=== PATIENT | male | born 1945 | race Caucasian/White ===

== ENCOUNTER 2017-03-27 16:06 | Observation (INO) | payer OTHER ==
[2017-03-27] MEDS: ASPIRIN 325 MG TAB PO (16:30)
[2017-03-27] MEDS ORDERED: SODIUM CHLORIDE 0.9% FLUSH 10 ML FLUSH IVF (16:30)
[2017-03-27 17:03] LABS: AUTOMATED NEUTROPHIL # 3.8 TH/MM3 (1.8-7.7); BASOPHIL % 0.6 % (0.0-2.0); EOSINOPHIL # 0.1 TH/MM3 (0-0.4); HEMATOCRIT 28.4 % (39.0-51.0); HEMO FLAGS DIFF FINAL; HEMOGLOBIN 9.6 GM/DL (13.0-17.0); LYMPH % 32.1 % (9.0-44.0); LYMPHOCYTE # 2.2 TH/MM3 (1.0-4.8); MEAN CELL VOLUME 81.7 FL (80.0-100.0); MEAN CORPUSCULAR HEMOGLOBIN 27.7 PG (27.0-34.0); MEAN CORPUSCULAR HGB CONC 33.9 % (32.0-36.0); MEAN PLATELET VOLUME 9.2 FL (7.0-11.0); MONO % 10.1 % (0.0-8.0); MONOCYTE # 0.7 TH/MM3 (0-0.9); NEUT % 55.2 % (16.0-70.0); PLATELET COUNT 146 TH/MM3 (150-450); RED BLOOD COUNT 3.48 MIL/MM3 (4.50-5.90); RED CELL DISTRIBUTION WIDTH 15.4 % (11.6-17.2); WHITE BLOOD COUNT 6.9 TH/MM3 (4.0-11.0)
[2017-03-27 17:12] LABS: APTT (PATIENT) 26.1 SEC (24.3-30.1)
[2017-03-27 17:19] LABS: ANION GAP 8 MEQ/L (5-15); BICARBONATE 28.3 MEQ/L (21.0-32.0); BLOOD UREA NITROGEN 33 MG/DL (7-18); CALCIUM 8.5 MG/DL (8.5-10.1); CHLORIDE 102 MEQ/L (98-107); CREATININE 1.15 MG/DL (0.60-1.30); GLOMERULAR FILTRATION RATE 63 ML/MIN (>89); GLUCOSE,RANDOM 305 MG/DL (74-106); MAGNESIUM 1.5 MG/DL (1.5-2.5); POTASSIUM 4.2 MEQ/L (3.5-5.1); SODIUM (NA) 138 MEQ/L (136-145)
[2017-03-27 17:22] LABS: CREATINE KINASE 109 U/L (39-308); TROPONIN I LESS THAN 0.02 NG/ML (0.02-0.05)
[2017-03-27 17:35] LABS: CKMB 3.5 NG/ML (0.5-3.6)
[2017-03-27] MEDS ORDERED: MORPHINE SULFATE 4 MG/ML INJ IV PUSH (18:00)
[2017-03-27] MEDS ORDERED: ACETAMINOPHEN/HYDROcodone 325 MG/7.5 MG TAB PO (18:00)
[2017-03-27] MEDS ORDERED: SODIUM CHLORIDE 0.9% FLUSH 10 ML FLUSH IV FLUSH (18:00)
[2017-03-27] MEDS ORDERED: NITROGLYCERIN 0.4 MG SL 25 TABS/BTL SL (18:00)
[2017-03-27] MEDS ORDERED: ACETAMINOPHEN 500 MG CPLT PO (18:00)
[2017-03-27] MEDS ORDERED: ONDANSETRON HCL 4 MG/2 ML VIAL IV PUSH (18:00)
[2017-03-27] MEDS ORDERED: GLUCAGON 1 MG/ML VIAL OTHER (19:15)
[2017-03-27] MEDS ORDERED: DEXTROSE 50% IN WATER 50 ML VIAL(D50) IV PUSH (19:15)
[2017-03-27 19:51] LABS: TROPONIN I LESS THAN 0.02 NG/ML (0.02-0.05)
[2017-03-27 19:52] LABS: CREATINE KINASE 97 U/L (39-308)
[2017-03-27] MEDS: ATORVASTATIN 40 MG TAB PO (20:51)
[2017-03-27] MEDS: SODIUM CHLORIDE 0.9% FLUSH 10 ML FLUSH IV FLUSH (20:53)
[2017-03-27 21:50] LABS: CREATINE KINASE 101 U/L (39-308); TROPONIN I LESS THAN 0.02 NG/ML (0.02-0.05)
[2017-03-27] MEDS: INSULIN ASPART SUPPLEMENTAL SCALE SQ (22:25)
[2017-03-28] MEDS: cloNIDine HCL 0.1 MG TAB PO (07:31)
[2017-03-28] MEDS: INSULIN ASPART SUPPLEMENTAL SCALE SQ ×2 (08:00→12:00)
[2017-03-28] MEDS ORDERED: OMEPRAZOLE MAGNESIUM 40 MG PO (09:00)
[2017-03-28] MEDS ORDERED: NON-FORMULARY DRUG (Ferrous Sulfate DR 324 MG) PO (09:00)
[2017-03-28] MEDS: PANTOPRAZOLE SOD 40 MG DELAYED RELEASE TAB PO (09:24)
[2017-03-28] MEDS: LOSARTAN 50 MG TAB PO (09:24)
[2017-03-28] MEDS: CHOLECALCIFEROL (VIT D3) 1000 UNIT TAB PO (09:24)
[2017-03-28] MEDS: FERROUS SULFATE 325 MG (65 MG ELEMENTAL IRON) TAB PO (09:24)
[2017-03-28] MEDS: amLODIPine BESYLATE 5 MG TAB PO (09:24)
[2017-03-28] MEDS: SODIUM CHLORIDE 0.9% FLUSH 10 ML FLUSH IV FLUSH (09:24)
[2017-03-28] MEDS: ASPIRIN 325 MG TAB PO (09:27)
[2017-03-28] MEDS: REGADENOSON INJ 0.4 MG/5 ML SYR (11:03)
== END 2017-03-28 13:50 | disposition home or self-care (01) ==
LOC: NEPE 16:06 → NEDA 17:56 → NEPHCDU 19:17
DX: R07.89 Other chest pain (principal); R06.02 Shortness of breath; I25.119 Atherosclerotic heart disease of native coronary artery with unspecified angina pectoris; I11.9 Hypertensive heart disease without heart failure; D64.9 Anemia, unspecified; I45.10 Unspecified right bundle-branch block; R94.31 Abnormal electrocardiogram [ECG] [EKG]; J44.9 Chronic obstructive pulmonary disease, unspecified; E78.00 Pure hypercholesterolemia, unspecified; E11.9 Type 2 diabetes mellitus without complications; K21.9 Gastro-esophageal reflux disease without esophagitis; F41.9 Anxiety disorder, unspecified; F32.9 Major depressive disorder, single episode, unspecified; M54.16 Radiculopathy, lumbar region; M16.10 Unilateral primary osteoarthritis, unspecified hip; Z95.5 Presence of coronary angioplasty implant and graft; Z79.899 Other long term (current) drug therapy; Z87.891 Personal history of nicotine dependence
CPT/HCPCS: 71045; 78452; 80048; 82550; 82552; 82948; 83735; 84484; 85025; 85610; 85730; 93005; 93017; 99285